=== PATIENT | female | born 2000 | race Caucasian/White ===

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

== ENCOUNTER 2019-01-31 02:08 | Inpatient (IN) | payer OTHER ==
[2019-01-31 02:36] LABS: #Basophils 0.1 thou/uL (0.0-0.2); #Lymphocytes 2.1 thou/uL (1.20-3.40); #Monocytes 0.6 thou/uL (0.11-0.59); #Neutrophils 7.2 thou/uL (1.40-6.50); %Basophils 0.7 % (0.0-1.0); %Eosinophils 0.1 % (0.0-10.0); %Lymphocytes 21.2 % (28.0-48.0); %Monocytes 6.2 % (0.0-4.0); %Neutrophils 71.8 % (31.0-61.0); Hemoglobin 16.4 g/dL (12.0-16.0); Mean Corpuscular HGB CONC 32.3 g/dL (32.0-36.0); Mean Corpuscular Hemoglobin 27.5 pg (25.0-35.0); Mean Corpuscular Volume 85.1 fL (78.0-98.0); Mean Platelet Volume 8.3 fL (7.4-10.4); Platelet Count 307 thou/uL (130-400); Red Blood Cell (RBC) Count 5.95 mill/uL (4.00-5.20)
[2019-01-31 02:44] LABS: Bicarbonate (HCO3v) 8.5 mmol/L (22.0-28.0); CO2 Tension (PvCO2) 25.7 mmHg (40.0-50.0); Calcium, Ionized 1.18 mmol/L (See Comments:); Chloride 109 mmol/L (98-107); Hemoglobin - Calc 18.8 g/dL (12.0-16.0); O2 Tension (PvO2) 52.8 mmHg (35.0-45.0); Potassium 4.7 mmol/L (3.5-5.1); Sodium 132 mmol/L (138-145); T. Carbon Dioxide 9.3 mmol/L (22.0-28.0); pH (Venous) 7.127 (7.320-7.430); vO2 Saturation-calc 76.2 % (60.0-85.0)
[2019-01-31] MEDS ORDERED: Ondansetron PF 4 MG/2 ML Vial ONE (02:53)
[2019-01-31 02:54] LABS: Bilirubin Negative (Negative); Blood, Urine Negative (Negative); Clarity CLEAR (Clear); Glucose, Urine (Dipstick) >=1000 mg/dL (Negative); Leukocyte Negative (Negative); Nitrite Negative (Negative); Protein, Urine (Dipstick) 30 mg/dL (Neg-Trace); Specific Gravity, Urine 1.032 (1.002-1.036); Urobilinogen 0.2 mg/dL (0.2-1.0); pH, Urine 5.5 (5.0-9.0)
[2019-01-31 02:56] LABS: ALT (SGPT) 24 U/L (8-55); AST (SGOT) 22 U/L (5-30); Albumin 4.9 g/dL (3.5-5.0); Alkaline Phosphatase 99 U/L (40-150); BUN (Urea Nitrogen) 19 mg/dL (8.4-21.0); Bilirubin, Total 0.6 mg/dL (0.2-1.2); Calc. Creatinine Clearance 0 mL/min (70-130); Calcium 10.5 mg/dL (7.8-10.44); Chloride 99 mmol/L (98-107); Estimated GFR-MDRD 44; Globulin 3.8 g/dL (2.4-3.5); Glucose 437 mg/dL (70-105); Potassium 5.1 mmol/L (3.5-5.1); Protein, Total 8.7 g/dL (6.0-8.3); Sodium 133 mmol/L (136-145)
[2019-01-31 02:57] LABS: Bacteria/HPF None Seen HPF (None Seen); Hyaline Casts/LPF 0-3 HYALINE CAST LPF (0-3 Hyaline); Pathc Cast-AUWi Flag 0.54 (0-2.49); Squamous Epithelial 0-3 HPF (0-3)
[2019-01-31 03:03] LABS: Carbon Dioxide Less than 8 mmol/L (22-29)
[2019-01-31] MEDS ORDERED: Insulin Regular 300 UNITS/3 ML VIAL ONE (03:18)
[2019-01-31] MEDS ORDERED: cefTRIAXone\\ROCEPHIN 1 GM VIAL ONE (03:40)
[2019-01-31] MEDS ORDERED: Sodium Chloride 0.9% 100 ML ONE (03:40)
[2019-01-31] MEDS ORDERED: Ondansetron PF 4 MG/2 ML Vial IVP PRN (03:46)
[2019-01-31] MEDS ORDERED: Acetaminophen 325 MG TAB PO PRN (03:46)
[2019-01-31] MEDS ORDERED: Ondansetron ODT 4 MG TAB PO PRN (03:46)
[2019-01-31] MEDS ORDERED: Insulin Regular 100 units/100 ml in NS IVPB SCH (04:00)
[2019-01-31 04:42] LABS: BUN (Urea Nitrogen) 18 mg/dL (8.4-21.0); Calc. Creatinine Clearance 0 mL/min (70-130); Calcium 9.4 mg/dL (7.8-10.44); Chloride 106 mmol/L (98-107); Estimated GFR-MDRD 55; Glucose 354 mg/dL (70-105); Potassium 5.2 mmol/L (3.5-5.1); Sodium 136 mmol/L (136-145)
[2019-01-31 04:47] LABS: Carbon Dioxide Less than 8 mmol/L (22-29)
[2019-01-31 05:31] VITALS: BMI 27.7
[2019-01-31] MEDS ORDERED: Sodium Chloride 0.9% 1,000 ML IV PRN ×4 (06:19)
[2019-01-31] MEDS ORDERED: Dextrose 5 %-0.45 % NaCl 1,000 ML IV PRN (06:19)
[2019-01-31] MEDS ORDERED: Dextrose 50% Abboject 50 ML SYRINGE SLOW IVP PRN (06:19)
[2019-01-31] MEDS ORDERED: Dextrose 5% in Water 1,000 ML IV PRN (06:19)
[2019-01-31] MEDS ORDERED: NS 0.9% w/ 20 MEQ KCL 1,000 ML/1,000 ML BAG IV PRN ×2 (06:19)
[2019-01-31] MEDS ORDERED: Magnesium Oxide 400 MG TAB PO PRN ×2 (06:22)
[2019-01-31] MEDS ORDERED: Magnesium 2 GM/50 ML 2 GM in Premix Bag 1 BAG IVPB PRN (06:22)
[2019-01-31] MEDS ORDERED: Potassium Phosphate 9 MMOL in Sodium Chloride 0.9% 100 ML IVPB PRN (06:22)
[2019-01-31] MEDS ORDERED: CCU ELECTROLYTE REPLACEMENT PROTOCOL FS PRN (06:22)
[2019-01-31] MEDS ORDERED: Potassium Chloride 40 MEQ in Premix Bag 1 BAG IVPB PRN (06:22)
[2019-01-31] MEDS ORDERED: Potassium Phosphate 15 MMOL in Sodium Chloride 0.9% 250 ML 250 ML IV PRN (06:22)
[2019-01-31] MEDS ORDERED: Potassium Chloride 20 MEQ TAB PO PRN (06:22)
[2019-01-31] MEDS ORDERED: PHOS-NAK 1 PKT PACK PO PRN ×2 (06:22)
[2019-01-31] MEDS ORDERED: Potassium Phosphate 12 MMOL in Sodium Chloride 0.9% 250 ML 250 ML IV PRN (06:22)
[2019-01-31] MEDS ORDERED: Potassium Chloride 40 MEQ in Sodium Chloride 0.9% 250 ML 250 ML IVPB PRN (06:22)
[2019-01-31] MEDS ORDERED: HUMULIN R 100 UNITS in Sodium Chloride 0.9% 100 ML IVPB SCH (06:30)
[2019-01-31] MEDS ORDERED: ADD ELECTROLYTE REPLACEMENT SET TO PROFILE FS SCH (06:30)
[2019-01-31] MEDS ORDERED: Insulin Regular 300 UNITS/3 ML VIAL IVP SCH (06:30)
--- NOTE | 2019-01-31 06:43 | HP ---
CHIEF COMPLAINT: Nausea, vomiting. HISTORY OF PRESENT ILLNESS: This patient is a 18-year-old female with a history of type 1 diabetes since childhood. The patient had managed her blood sugars quite well without having prior episodes of DKA until December 22 of this year when she was admitted to this facility with diabetic ketoacidosis. She required a couple of days here to get hydrated and control the blood sugar and was subsequently discharged. She reports that she has been doing well with her insulin pump, although she was never fully educated on proper utilization until today. She reports that she was monitoring her blood sugars and was having relatively good numbers and adequately dosing based on her dietary intake, but then this afternoon had the abrupt onset of nausea and vomiting and severe thirst that recognizing this is similar to previous episode, she presented to the emergency department. She denies any antecedent illness. No fevers or chills. No abdominal pain. No dysuria. She continues to feel fairly thirsty at present. REVIEW OF SYSTEMS: All systems reviewed. All pertinent positives and negatives noted in the history of present illness. PAST MEDICAL HISTORY: Diabetes mellitus type 1. PAST SURGICAL HISTORY: Left knee ACL and right knee cartilage surgery, tonsillectomy. SOCIAL HISTORY: Nonsmoker, nondrinker, nondrug user. She is not . 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 She is full code and parents are surrogate decision makers. FAMILY HISTORY: Notable for a diabetes type 2. ALLERGIES: NONE. MEDICATIONS: Insulin pump and oral contraceptive agents. PHYSICAL EXAMINATION: VITAL SIGNS: BP 139/87, pulse 103, respirations 18, O2 saturation 97% on room air. GENERAL APPEARANCE: Age-appropriate female. She is in no distress. She is awake, alert, oriented, pleasant, and cooperative. HEENT: PERRL. No OP lesions. NECK: Supple and symmetric with no lymphadenopathy, JVD, or bruits. HEART: Regular rate and rhythm. She has a 1/6 flow murmur at the left upper or left lower sternal border. She is tachycardic. LUNGS: Clear to auscultation bilaterally with good chest wall expansion and air exchange. ABDOMEN: Soft, nontender, and nondistended. Positive bowel sounds. No masses. No organomegaly. EXTREMITIES: No cyanosis, clubbing, or edema. SKIN: Warm and dry with no lesions. NEUROLOGIC: She is fully intact with no deficits. PSYCH: The patient has normal affect and behavior. LABORATORY DATA: White count 10.0, hemoglobin 16.4, platelets 307. Sodium 133, potassium 5.1, chloride 99, CO2 is less than 8, BUN 9, creatinine 1.51, glucose initially 371 and then 437, calcium is 10.5, AST 22, ALT 24, albumin 4.9. Urinalysis shows greater than 1000 glucose, greater than 80 ketones, 7-10 white cells. Beta-hydroxybutyrate 7.71. VBG; pH 7.127, pCO2 is 26, PO2 is 53, bicarb is 8.5. EMERGENCY ROOM COURSE: The patient received a dose of Rocephin. She received 7 units of Novolin R and started on a drip at 7 units/hour. She also received 2 L of normal saline and Zofran 4 mg. IMPRESSION AND PLAN: 1. Diabetic ketoacidosis. The patient has clear evidence of ketosis and acidosis with associated vomiting. She has received aggressive hydration and started on insulin drip. We will initiate the DKA protocol and the patient will be placed in IMCU. We will continue to treat for possible underlying urinary tract infection, although evidence for that is scant. The patient's insulin pump will be discontinued for now. 2. Nausea and vomiting. Continue p.r.n. antiemetics. We will let her try some clear liquids as she appears to be taking some water and reasonably well at the moment. 3. Acute renal injury. This is similar to her previous presentation in December. She had resolution with normalization of her creatinine. We will continue to monitor closely. 4. Possible urinary tract infection. Again, evidence is modest. However, given the diabetic ketoacidosis, we will go ahead and cover with Rocephin and follow up cultures. Job ID: [id number]
[2019-01-31] MEDS: D5 1/2 NS w/20 mEq KCL 1,000 ML IV PRN ×2 (07:03→11:18)
[2019-01-31 10:04] LABS: Anion Gap 16 mmol/L (10-20); BUN (Urea Nitrogen) 10 mg/dL (8.4-21.0); Calc. Creatinine Clearance 108 mL/min (70-130); Carbon Dioxide 10 mmol/L (22-29); Chloride 112 mmol/L (98-107); Estimated GFR-MDRD 74; Glucose 229 mg/dL (70-105); Potassium 4.4 mmol/L (3.5-5.1); Sodium 134 mmol/L (136-145)
[2019-01-31] MEDS: Enoxaparin Sodium 40 MG/0.4 ML SYRINGE SC SCH (10:12)
[2019-01-31] MEDS: Famotidine 20 MG TAB PO SCH ×2 (10:12→21:18)
--- NOTE | 2019-01-31 12:56 | PDOC.EVN ---
Event Note - Event Note Event Note: Patient currently on d51/2 NS +KCL is still very tacycardic and last BMP showed Chloride of 112 with Co2 of 10 consistent with hyperchloremic acidosis and AGMA. We will switch to D5LR at 250 and replete potassium as needed. Continue insulin infusion and regular BMP monitoring.
[2019-01-31 16:13] LABS: Anion Gap 12 mmol/L (10-20); BUN (Urea Nitrogen) 7 mg/dL (8.4-21.0); Calc. Creatinine Clearance 126 mL/min (70-130); Calcium 8.4 mg/dL (7.8-10.44); Carbon Dioxide 15 mmol/L (22-29); Chloride 115 mmol/L (98-107); Estimated GFR-MDRD 89; Glucose 146 mg/dL (70-105); Potassium 3.7 mmol/L (3.5-5.1); Sodium 138 mmol/L (136-145)
[2019-01-31] MEDS: Dextrose 5%-Lactated Ringers 1,000 ML IV SCH ×2 (19:15→23:17)
[2019-01-31 22:33] LABS: Anion Gap 7 mmol/L (10-20); BUN (Urea Nitrogen) 5 mg/dL (8.4-21.0); Calc. Creatinine Clearance 141 mL/min (70-130); Calcium 8.1 mg/dL (7.8-10.44); Carbon Dioxide 19 mmol/L (22-29); Chloride 115 mmol/L (98-107); Estimated GFR-MDRD Greater than 90; Glucose 147 mg/dL (70-105); Potassium 3.4 mmol/L (3.5-5.1); Sodium 138 mmol/L (136-145)
[2019-02-01] MEDS: Dextrose 5%-Lactated Ringers 1,000 ML IV SCH ×2 (03:31→06:04)
[2019-02-01] MEDS ORDERED: cefTRIAXone\\ROCEPHIN 1 GM in Sodium Chloride 0.9% 100 ML IVPB SCH (04:00)
[2019-02-01 05:58] LABS: Anion Gap 11 mmol/L (10-20); BUN (Urea Nitrogen) Less than 4 mg/dL (8.4-21.0); Calc. Creatinine Clearance 143 mL/min (70-130); Calcium 8.4 mg/dL (7.8-10.44); Carbon Dioxide 17 mmol/L (22-29); Chloride 112 mmol/L (98-107); Estimated GFR-MDRD Greater than 90; Glucose 205 mg/dL (70-105); Potassium 3.9 mmol/L (3.5-5.1); Sodium 136 mmol/L (136-145)
[2019-02-01 06:17] LABS: #Basophils 0.1 thou/uL (0.0-0.2); #Eosinphils 0.1 thou/uL (0.0-0.7); #Lymphocytes 2.3 thou/uL (1.20-3.40); #Monocytes 0.6 thou/uL (0.11-0.59); #Neutrophils 2.5 thou/uL (1.40-6.50); %Basophils 0.9 % (0.0-1.0); %Monocytes 10.7 % (0.0-4.0); %Neutrophils 46.4 % (31.0-61.0); Hemoglobin 13.7 g/dL (12.0-16.0); Mean Corpuscular Hemoglobin 27.9 pg (25.0-35.0); Mean Corpuscular Volume 84.4 fL (78.0-98.0); Mean Platelet Volume 8.2 fL (7.4-10.4); Platelet Count 223 thou/uL (130-400); RBC Distribution Width 13.4 % (11.5-14.5); Red Blood Cell (RBC) Count 4.91 mill/uL (4.00-5.20); White Blood Cell (WBC) Count 5.5 thou/uL (4.8-10.8)
[2019-02-01 08:03] LABS: Magnesium 1.7 mg/dL (1.7-2.2)
[2019-02-01 08:10] LABS: Phosphorus Less than 1.0 mg/dL (2.3-4.7)
[2019-02-01] MEDS ORDERED: Potassium Phosphate 30 MMOL in Sodium Chloride 0.9% 500 ML IV SCH (09:30)
[2019-02-01] MEDS: Famotidine 20 MG TAB PO SCH (09:34)
[2019-02-01] MEDS: Enoxaparin Sodium 40 MG/0.4 ML SYRINGE SC SCH (09:39)
[2019-02-01 10:26] VITALS: TEMP 99
--- NOTE | 2019-02-01 10:28 | PDOC.PN ---
- Subjective Encounter Start Date: 02/01/19 Encounter Start Time: 10:26 Subjective: admitted with nausea and vomiting associated with weakness. -: Found to have DKA. -: Treated with insulin infusion and IVF with improvement. Feeling better. - Objective Resuscitation Status - Order Detail: 01/31/19 03:46 Resuscitation Status Routine Resuscitation Status: FULL: Full Resuscitation Vital Signs & Weight: Vital Signs (12 hours) Temp Pulse Ox 02/01/19 08:34 98 02/01/19 07:09 97.6 F 02/01/19 04:00 98.7 F 02/01/19 00:00 99.1 F Weight Weight 171 lb 15.369 oz Most Recent Monitor Data Heart Rate from ECG 76 NIBP 112/68 NIBP BP-Mean 82 Respiration from ECG 18 SpO2 97 I&O: 01/31/19 02/01/19 02/02/19 06:59 06:59 06:59 Intake Total 2060 3332 Output Total 975 725 Balance 1085 2607 Result Diagrams: 02/01/19 04:55 02/01/19 04:55 Additional Labs: Accuchecks 02/01/19 02/01/19 02/01/19 09:40 08:23 07:09 POC Glucose 163 H 131 H 155 H 02/01/19 02/01/19 02/01/19 06:04 05:03 04:14 POC Glucose 192 H 189 H 201 H 02/01/19 02/01/19 02/01/19 03:15 02:20 01:27 POC Glucose 198 H 231 H 232 H 02/01/19 02/01/19 01/31/19 00:49 00:00 23:14 POC Glucose 212 H 191 H 152 H 01/31/19 01/31/19 01/31/19 22:10 21:16 20:01 POC Glucose 134 H 142 H 154 H 01/31/19 01/31/19 01/31/19 19:05 18:07 17:23 POC Glucose 174 H 216 H 139 H 01/31/19 01/31/19 01/31/19 16:06 15:09 13:55 POC Glucose 133 H 136 H 192 H 01/31/19 01/31/19 01/31/19 12:46 11:16 09:51 POC Glucose 245 H 205 H 226 H 01/31/19 08:53 POC Glucose 223 H Phys Exam - Physical Examination Constitutional: NAD HEENT: PERRLA, moist MMs Neck: no JVD, supple Respiratory: no wheezing, no rales, no rhonchi, clear to auscultation bilateral Cardiovascular: RRR, no significant murmur Gastrointestinal: soft, non-tender, no distention, positive bowel sounds Musculoskeletal: no edema, pulses present Neurological: non-focal, normal sensation, moves all 4 limbs Psychiatric: A&O x 3 Dx/Plan (1) Dehydration Code(s): E86.0 - DEHYDRATION Status: Acute (2) SIRS (systemic inflammatory response syndrome) Code(s): R65.10 - SIRS OF NON-INFECTIOUS ORIGIN W/O ACUTE ORGAN DYSFUNCTION Status: Acute (3) Hypophosphatemia Code(s): E83.39 - OTHER DISORDERS OF PHOSPHORUS METABOLISM Status: Acute (4) Nausea and vomiting Code(s): R11.2 - NAUSEA WITH VOMITING, UNSPECIFIED Status: Acute (5) Type 1 diabetes mellitus Status: Acute (6) DKA (diabetic ketoacidosis) Code(s): E13.10 - OTH DIABETES MELLITUS WITH KETOACIDOSIS WITHOUT COMA Status : Acute Comment: Improving, anion gap closed. Bicarb still low. Plan to transition to insulin pump and follow sugars. (7) VIRGIL (acute kidney injury) Code(s): N17.9 - ACUTE KIDNEY FAILURE, UNSPECIFIED Status: Resolved (8) Hyperkalemia Code(s): E87.5 - HYPERKALEMIA Status: Resolved (9) Hypokalemia Code(s): E87.6 - HYPOKALEMIA Status: Acute (10) Metabolic acidosis Code(s): E87.2 - ACIDOSIS Status: Acute Comment: Initially due to DKA but currently due to hyperchloremic acidosis - Plan Transition insulin from IV infusion to subcut via pump. -: replete serum phosphate with k phos -: DC D5LR and start plain LR at 125 cc/hr. -: Start diabetic diet. -: Monitor electrolytes and replete as appropriate. Transfer to med floor. * .
[2019-02-01] MEDS ORDERED: Lactated Ringer's 1,000 ML IV SCH (10:30)
[2019-02-01 14:32] LABS: Anion Gap 12 mmol/L (10-20); BUN (Urea Nitrogen) Less than 4 mg/dL (8.4-21.0); Calc. Creatinine Clearance 151 mL/min (70-130); Calcium 9.4 mg/dL (7.8-10.44); Carbon Dioxide 27 mmol/L (22-29); Chloride 106 mmol/L (98-107); Estimated GFR-MDRD Greater than 90; Glucose 116 mg/dL (70-105); Potassium 3.6 mmol/L (3.5-5.1); Sodium 141 mmol/L (136-145)
[2019-02-01] MEDS ORDERED: Potassium Chloride 20 MEQ TAB PO SCH (14:45)
--- NOTE | 2019-02-03 14:46 | PQF ---
MARE JACOBS OBIALISSA [id number] [facility]- B07 [id number] CLINICAL DOCUMENTATION IMPROVEMENT CLARIFICATION FORM: ICD-10 Updated PLEASE DO AN ADDENDUM TO THE PROGRESS NOTE WITH ANY DOCUMENTATION UPDATES OR ADDITIONS AND CARRY THROUGH TO DC SUMMARY. THANK YOU. DATE: 02/03/19 ATTN:Dr. Guerrero Please exercise your independent, professional judgment in responding to the clarification form. Clinical indicators are provided on the bottom of this form for your review Please check appropriate box(s): [ ] SIRS due to Non-infectious process: [ ] Diabetic ketoacidosis (DKA) with organ dysfunction( VIRGIL) [ ] DKA Without organ dysfunction [ ] Other diagnosis [ ] Unable to determine I n addition, please specify: Present on Admission (POA): [ ] Yes [ ] No [ ] Unable to determine For continuity of documentation, please document condition throughout progress notes and discharge summary. Thank You. CLINICAL INDICATORS - SIGNS / SYMPTOMS / LABS Heart Rate >90/min--> HR 111 per VS 01/31 Respiratory Rate 25/min per 01/31 VS Metabolic Acidosis --> CO2 <8 01/31 lab, 01/31 IM: AGMA 01/31 bun19, creat 1.51, GFR 44--bun 18, creat 1.26, GFR 55--bun 10, creat 0.97, GFR 74 01/31 labs Acute renal injury H&P and 02/01 IM: SIRS of non infectious orgin w/o acute organ dysfunction. VIRGIL resolved. RISK FACTORS DKA, acute renal injury, possible UTI per H&P TREATMENT IV Fluids--> 2L NS bolus 01/31; NS at 100 01/31 changed to D5 LR at 250 01/31- per DEC Antibiotics--Rocephin IV 01/31-02/01 per DEC Daily Electrolytes and glucose monitoring per orders 01/31-02/01 (This form is maintained as a part of the permanent medical record) 2014 [employer]. All Rights Reserved Niecy Brewster RN, BSN, CCDS [email or web address] [phone] MTDD
== END 2019-02-01 15:30 | disposition home or self-care (01) | DRG 638 ==
LOC: ERS 02:08 → IMCU/EMU 04:08
PROVIDERS: ADMIT Internal Medicine; ATTEND Internal Medicine
DX: E10.10 Type 1 diabetes mellitus with ketoacidosis without coma (principal); N17.9 Acute kidney failure, unspecified; R65.10 Systemic inflammatory response syndrome (SIRS) of non-infectious origin without acute organ dysfunction; E87.6 Hypokalemia; E86.0 Dehydration; E83.39 Other disorders of phosphorus metabolism; E87.5 Hyperkalemia
CPT/HCPCS: 36415; 36416; 80048; 80053; 81003; 81015; 82010; 82330; 82803; 83735; 84100; 84443; 85025; 96361; 96365; 96367; 96375; 96376; 99292; J0696; J1650; J1815; J2405; J3490; J7050